=== PATIENT | male | born 1980 | race Caucasian/White ===

== ENCOUNTER → 2018-07-17 10:20 | Outpatient (REF) | payer MEDICAID, SELFPAY ==
[2018-07-17 13:47] LABS: Basophils # 0.1 K/mm3 (0-0.2); Basophils % 0.8 % (0.1-2.0); Eosinophils # 0.2 K/mm3 (0.0-0.4); Eosinophils % 2.5 % (0.1-12.0); Hematocrit 46.7 % (42.0-52.0); Hemoglobin 15.3 g/dL (14.1-18.0); Lymphocytes # 3.6 K/mm3 (0.7-4.5); Mean Corpuscular HGB Conc 32.9 g/dL (31.8-35.4); Mean Corpuscular Volume 88.1 fl (80-94); Mean Platelet Volume 8.3 fl (7.4-10.4); Monocytes # 0.6 K/mm3 (0.1-1.0); Neutrophils # 3.2 K/mm3 (1.8-7.8); Neutrophils % 41.7 % (37.0-80.0); Platelet Count 196 K/mm3 (142-424); Red Cell Distribution Width 15.7 % (11.5-17.5); White Blood Count 7.6 K/mm3 (4.8-10.8)
[2018-07-17 13:54] LABS: Alanine Aminotransferase 140 U/L (12-78); Albumin Level 3.9 gm/dL (3.4-5.0); Alkaline Phosphatase 96 U/L (46-116); Anion Gap 14.5 mEq/L (5-15); Aspartate Amino Transferase 67 U/L (15-37); Bilirubin,Total 0.3 mg/dL (0.2-1.0); Blood Urea Nitrogen 18 mg/dL (7-18); Calcium 8.8 mg/dL (8.5-10.1); Carbon Dioxide 27 mmol/L (21.0-32.0); Chloride 103 mmol/L (98-107); Chol/HDL Ratio 4.8 (1-3.5); Cholesterol 171 mg/dL (140-200); Creatinine,Serum 1.23 mg/dL (0.70-1.30); Estimated Glomerular Filt Rate 66 ml/min (>60); GFR (African American) 80 ML/MIN (>60); Globulin 4.1 gm/dl (1.3-3.2); Glucose 96 mg/dL (74-106); HDL Cholesterol 36 mg/dL (27-67); LDL Cholesterol 91 mg/dL (0-130); Potassium 4.5 mmoL/L (3.5-5.1); Sodium 140 mmol/L (136-145); T4 (Thyroxine) 9.6 ug/dl (4.7-13.3); Thyroid Stimulating Hormone 5.01 uIU/ml (0.358-3.740); Triglycerides 219 mg/dL (30-200); VLDL Cholesterol 44 mg/dL (0-40)
[2018-07-17 14:18] LABS: Amphetamine/Metha Screen,Urine Negative ng/mL (<1000); Barbiturates Screen,Urine Negative ng/mL (<200); Benzodiazepines Screen,Urine Negative ng/mL (<200); Cannabinoid Screen,Urine Negative ng/mL (<50); Cocaine Screen,Urine Negative ng/mL (<300); Methadone Screen,Urine Negative ng/mL (<300); Opiate Screen,Urine Negative ng/mL (<300); Phencyclidine Screen,Urine Negative ng/mL (<25)
[2018-07-19 14:49] LABS: Vitamin D 25 Hydroxy 26.2 ng/mL (30.0-100.0)
== END ==
LOC: LAB 10:20
PROVIDERS: Visit Provider Nurse Practitioner Family
DX: I10 Essential (primary) hypertension (principal); Z79.899 Other long term (current) drug therapy
CPT/HCPCS: 80053; 80061; 80305; 82652; 84436; 84443; 85025

== ENCOUNTER → 2021-08-27 17:59 | Outpatient (CLI) | payer OTHER, SELFPAY ==
[2021-08-27 18:20] LABS: Basophils # 0.1 K/mm3 (0-0.2); Basophils % 0.9 % (0.1-2.0); Eosinophils # 0.1 K/mm3 (0.0-0.4); Eosinophils % 0.9 % (0.1-12.0); Hematocrit 49.7 % (42.0-52.0); Hemoglobin 15.9 g/dL (14.1-18.0); Lymphocytes # 2.2 K/mm3 (0.7-4.5); Lymphocytes % 35.6 % (10-50); Mean Corpuscular HGB Conc 32.1 g/dL (31.8-35.4); Mean Corpuscular Hemoglobin 30.7 pg (27.0-31.2); Mean Corpuscular Volume 95.8 fl (80-94); Mean Platelet Volume 11.7 fl (7.4-10.4); Monocytes # 0.5 K/mm3 (0.1-1.0); Monocytes % 7.5 % (1.7-9.3); Neutrophils # 3.4 K/mm3 (1.8-7.8); Neutrophils % 55.1 % (37.0-80.0); Platelet Count 128 K/mm3 (142-424); Red Blood Count 5.19 M/mm3 (4.60-6.20); White Blood Count 6.1 K/mm3 (4.8-10.8)
[2021-08-27 18:25] LABS: Alanine Aminotransferase 259 U/L (12-78); Albumin/Globulin Ratio 0.9 (1.1-1.8); Alkaline Phosphatase 311 U/L (38-126); Anion Gap 13.9 mEq/L (5-15); Aspartate Amino Transferase 234 U/L (17-59); Bilirubin,Total 0.7 mg/dl (0.2-1.3); Blood Urea Nitrogen 11 mg/dl (9-20); Calcium 9.4 mg/dl (8.4-10.2); Carbon Dioxide 25 mmol/L (22.0-30.0); Chloride 95 mmol/L (98-107); Chol/HDL Ratio 9.3 (1-3.5); Cholesterol 252 mg/dl (140-200); Estimated Glomerular Filt Rate 183 ml/min (>60); GFR (African American) 222 ML/MIN (>60); Globulin 4.6 g/dL (1.3-3.2); Glucose 375 mg/dl (74-100); HDL Cholesterol 27 mg/dl (40-60); Potassium 4.9 mmoL/L (3.5-5.1); Sodium 129 mmol/L (136-145); Total Protein,Serum 8.6 g/dl (6.3-8.2)
[2021-08-27 18:33] LABS: Triglycerides 573 mg/dl (30-150)
[2021-08-27 18:36] LABS: Direct LDL Cholesterol 141.51 mg/dL (100-129)
[2021-08-27 18:42] LABS: T4 (Thyroxine) 10.6 ug/dl (5.53-11.0)
[2021-08-27 18:55] LABS: Thyroid Stimulating Hormone 4.85 uIU/mL (0.465-4.68)
[2021-08-27 19:08] LABS: Hemoglobin A1C 11.3 % (4.0-6.0)
[2021-08-29 08:51] LABS: HIV Screen 4th Generation wRfx Non Reactive (Non Reactive)
[2021-08-29 09:22] LABS: Hep A Ab, IgM Negative (Negative); Hep A Ab, Total Positive (Negative); Hep B Core Ab, Total Negative (Negative); Hep B Surface Ab, Qual Non Reactive (.); Hepatitis B Surface Antigen Negative (Negative); Hepatitis C Antibody >11.0 s/co ratio (0.0-0.9)
[2021-08-31 14:51] LABS: HCV Genotype Charge YES; Hepatitis C Genotype 1a (.)
[2021-09-08 01:07] LABS: ALT (SGPT) P5P 238 IU/L (0-55); Alpha 2-Macroglobulins, Qn 328 mg/dL (110-276); Apolipoprotein A-1 96 mg/dL (101-178); Bilirubin, Total 0.3 mg/dL (0.0-1.2); Fibrosis Score 0.63 (0.00-0.21); GGT 151 IU/L (0-65); Haptoglobin 104 mg/dL (23-355); Necroinflammat Activity Grade A3-Severe activity (.)
== END ==
PROVIDERS: Visit Provider Nurse Practitioner Family
DX: B19.20 Unspecified viral hepatitis C without hepatic coma (principal); E66.01 Morbid (severe) obesity due to excess calories; Z68.41 Body mass index [BMI] 40.0-44.9, adult; Z11.4 Encounter for screening for human immunodeficiency virus [HIV]
CPT/HCPCS: 80053; 80061; 81596; 83036; 84436; 84443; 85025; 86703; 86704; 86706; 86708; 87340; 87380; 87522; 87902; G0432

== ENCOUNTER → 2021-09-09 17:23 | Outpatient (CLI) | payer OTHER, SELFPAY ==
[2021-09-09 17:58] LABS: INR 0.97 (0.9-1.1)
[2021-09-11 11:14] LABS: AFP, Tumor Marker 7.3 ng/mL (0.0-8.3)
[2021-09-16 16:17] LABS: Testosterone,Free 1.9 pg/mL (6.8-21.5)
== END ==
PROVIDERS: Visit Provider Nurse Practitioner Family
DX: F32.A Depression, unspecified (principal); B15.9 Hepatitis A without hepatic coma; B19.20 Unspecified viral hepatitis C without hepatic coma
CPT/HCPCS: 36415; 82105; 84402; 85610

== ENCOUNTER → 2021-09-22 18:11 | Outpatient (CLI) | payer OTHER, SELFPAY ==
[2021-09-27 18:17] LABS: Testosterone, Total, LC/MS 174.1 ng/dL (264.0-916.0)
== END ==
PROVIDERS: Visit Provider Nurse Practitioner Family
DX: E34.9 Endocrine disorder, unspecified (principal)
CPT/HCPCS: 84403

== ENCOUNTER → 2021-10-06 11:51 | Outpatient (CLI) | payer OTHER, SELFPAY ==
[2021-10-06 12:26] LABS: Coronavirus 19, PCR Not Detected (NotDetected); Influenza A, PCR Not Detected (NotDetected); Influenza B, PCR Not Detected (NotDetected)
== END ==
PROVIDERS: PCP Emergency Medicine; Visit Provider Nurse Practitioner
DX: Z20.822 Contact with and (suspected) exposure to COVID-19 (principal)
CPT/HCPCS: C9803; U0003; U0005

== ENCOUNTER → 2021-10-07 09:03 | Outpatient (CLI) | payer OTHER, SELFPAY ==
--- NOTE | 2021-10-07 09:03 | CT_ITS ---
PROCEDURE: CT ABDOMEN WO/W CON CLINICAL HISTORY: Abnormal Liver Labs COMPARISON: No exams were available for comparison TECHNIQUE: 75 mL Isovue 370 Axial images obtained with sagittal and coronal reformats. All CT scans at the facility use one or more dose reduction, viz: automated exposure control, ma/kV adjustment per patient size (including targeted exams where dose is matched to indication, i.e. head), or iterative reconstruction technique. FINDINGS: No focal liver lesion apparent. hepatomegaly measuring up to 30 cm in maximum transverse dimension. Common hepatic duct is slightly prominent at 10 mm. No radiopaque gallstones.. There is homogeneous density of the liver without fatty infiltration. There is mild splenomegaly at 16 cm. Unremarkable adrenal glands. Unremarkable pancreas. There is nonobstructing 3 mm stone in the lower pole of the left kidney. No ureteral calculi or renal mass. Small left renal cyst at approximately 0.8 cm. There are few mildly prominent periportal nodes and some small celiac nodes. No intestinal obstruction or free air. There are few scattered small nodes along the mesenteric axis. Degenerative changes lumbar spine and thoracic. IMPRESSION: Hepatosplenomegaly. No focal liver lesion apparent. There is mild prominence of the common hepatic duct 10 mm. No obvious common duct stone. MRI with MRCP may provide further evaluation if clinically warranted. Mildly prominent periportal nodes nonspecific measuring up to 2 x 1 cm Nonobstructing left renal calculus Dictated by: Daniel Lyman MD 10/08/2021 11:55 Daniel Lyman MD in [facility] 10/08/2021 11:55
== END ==
PROVIDERS: PCP Nurse Practitioner Family; Visit Provider Nurse Practitioner Family
DX: B19.20 Unspecified viral hepatitis C without hepatic coma (principal)
CPT/HCPCS: 36415; 74170; 80053; 87380; 87522; Q9967

== ENCOUNTER → 2021-11-04 13:27 | Outpatient (CLI) | payer OTHER, SELFPAY ==
[2021-10-07 10:12] LABS: Alanine Aminotransferase 229 U/L (12-78); Albumin Level 4.1 g/dl (3.5-5.0); Alkaline Phosphatase 229 U/L (38-126); Anion Gap 14.4 mEq/L (5-15); Aspartate Amino Transferase 231 U/L (17-59); Bilirubin,Total 0.6 mg/dl (0.2-1.3); Blood Urea Nitrogen 14 mg/dl (9-20); Calcium 9.1 mg/dl (8.4-10.2); Carbon Dioxide 27 mmol/L (22.0-30.0); Chloride 98 mmol/L (98-107); Estimated Glomerular Filt Rate 124 ml/min (>60); GFR (African American) 150 ML/MIN (>60); Globulin 4.1 g/dL (1.3-3.2); Glucose 183 mg/dl (74-100); Potassium 4.4 mmoL/L (3.5-5.1); Sodium 135 mmol/L (136-145); Total Protein,Serum 8.2 g/dl (6.3-8.2)
[2021-10-08 09:21] LABS: Hepatitis C Antibody >11.0 s/co ratio (0.0-0.9)
[2021-11-04 14:09] LABS: Chloride 103 mmol/L (98-107); Sodium 138 mmol/L (136-145)
[2021-11-04 14:10] LABS: Potassium 5.2 mmoL/L (3.5-5.1)
[2021-11-04 14:12] LABS: Alanine Aminotransferase 181 U/L (12-78); Albumin Level 3.9 g/dl (3.5-5.0); Albumin/Globulin Ratio 1.1 (1.1-1.8); Alkaline Phosphatase 185 U/L (38-126); Anion Gap 12.2 mEq/L (5-15); Aspartate Amino Transferase 154 U/L (17-59); Bilirubin,Total 0.5 mg/dl (0.2-1.3); Blood Urea Nitrogen 13 mg/dl (9-20); Calcium 8.1 mg/dl (8.4-10.2); Carbon Dioxide 28 mmol/L (22.0-30.0); Estimated Glomerular Filt Rate 107 ml/min (>60); GFR (African American) 129 ML/MIN (>60); Globulin 3.7 g/dL (1.3-3.2); Glucose 168 mg/dl (74-100); Total Protein,Serum 7.6 g/dl (6.3-8.2)
[2021-11-05 08:27] LABS: Hepatitis C Antibody >11.0 s/co ratio (0.0-0.9)
== END ==
PROVIDERS: Visit Provider Nurse Practitioner Family
DX: B18.2 Chronic viral hepatitis C (principal)
CPT/HCPCS: 36415; 80053; 87380; 87522

== ENCOUNTER → 2022-08-18 12:32 | Outpatient (CLI) | payer OTHER, SELFPAY ==
[2022-08-18 14:16] LABS: Basophils # 0.1 K/mm3 (0-0.2); Basophils % 0.9 % (0.1-2.0); Eosinophils # 0.1 K/mm3 (0.0-0.4); Hematocrit 45.7 % (42.0-52.0); Hemoglobin 14.9 g/dL (14.1-18.0); Lymphocytes % 31.1 % (10-50); Mean Corpuscular HGB Conc 32.7 g/dL (31.8-35.4); Mean Corpuscular Hemoglobin 27.8 pg (27.0-31.2); Mean Corpuscular Volume 85.1 fl (80-94); Mean Platelet Volume 8.9 fl (7.4-10.4); Monocytes # 0.4 K/mm3 (0.1-1.0); Monocytes % 6.6 % (1.7-9.3); Neutrophils # 3.9 K/mm3 (1.8-7.8); Neutrophils % 60.4 % (37.0-80.0); Platelet Count 156 K/mm3 (142-424); Red Blood Count 5.37 M/mm3 (4.60-6.20); Red Cell Distribution Width 18.6 % (11.5-17.5); White Blood Count 6.5 K/mm3 (4.8-10.8)
[2022-08-18 15:08] LABS: Alanine Aminotransferase 126 U/L (12-78); Albumin/Globulin Ratio 1.2 (1.1-1.8); Alkaline Phosphatase 178 U/L (38-126); Anion Gap 14.6 mEq/L (5-15); Aspartate Amino Transferase 110 U/L (17-59); Bilirubin,Total 0.2 mg/dl (0.2-1.3); Blood Urea Nitrogen 20 mg/dl (9-20); Calcium 8.6 mg/dl (8.4-10.2); Carbon Dioxide 29 mmol/L (22.0-30.0); Chloride 98 mmol/L (98-107); Estimated Glomerular Filt Rate 93 ml/min (>60); GFR (African American) 112 ML/MIN (>60); Globulin 3.4 g/dL (1.3-3.2); Glucose 96 mg/dl (74-100); Potassium 4.6 mmoL/L (3.5-5.1); Sodium 137 mmol/L (136-145); Total Protein,Serum 7.4 g/dl (6.3-8.2)
[2022-08-20 12:44] LABS: Hepatitis C Antibody >11.0 s/co ratio (0.0-0.9)
[2022-08-24 10:34] LABS: Testosterone, Total, LC/MS 222.9 ng/dL (264.0-916.0); Testosterone,Free 4.8 pg/mL (6.8-21.5)
== END ==
PROVIDERS: PCP Nurse Practitioner Family; Visit Provider Nurse Practitioner Family
DX: B18.2 Chronic viral hepatitis C (principal)
CPT/HCPCS: 36415; 80053; 84402; 84403; 85025; 87380; 87522